=== PATIENT | female | born 1985 | race Caucasian/White ===

== ENCOUNTER → 2023-08-08 | Outpatient (CLI) | payer MEDICARE, OTHER ==
--- NOTE | 2023-08-08 15:14 | P.HPBAR ---
Bariatric H&P - History & Physicial H&P Date: 08/08/23 History & Physicial: Visit/CC: Initial Patient initial contact: Initial weight: 157.85 kg Initial weight in pounds: 348.00 Height: 5 ft 3 in Initial BMI: 61.6 Last weight: Current weight: 157.85 kg Current weight in pounds: 348.00 Current BMI: 61.6 [place] body weight (based on NIH guidelines): 52.163 kg Excess body weight loss: 0.0% The patient is a 37 year-old F who presents for Bariatric Assessment. She is looking into gastric bypass. She has her food diary journal. She was seen in the office. She is taking a multivitamin. Vitamin D. She had chonic diarrhea. She eas saxewnda for 1 year then trulicity is no longer covered. Past Medical History Smoking Status: Never smoker Surgical - Exam Vital Signs Temp Pulse Resp BP 98.4 F 87 16 160/91 08/08/23 14:55 08/08/23 14:55 08/08/23 14:55 08/08/23 14:55 Bariatric Checklist Checklist: Plan: Checklist: EGD: 1. Hiatal hernia: 2. H. Pylori: HgbA1c: Vitamin D: Smoking: Primary care physician referral: Psychiatry clearance: Cardiology clearance: Sleep study: Diet journal: VTE risk score: VTE risk level: Rehab needs at discharge:
[2023-08-08 15:28] VITALS: BP 160/91; PULSE 87; RESP 16; TEMP 98.4; BMI 61.6
== END ==
LOC: BARWHC3 13:25
PROVIDERS: ATTEND Surgery Plastic and Reconstructive Surgery
DX: E66.01 Morbid (severe) obesity due to excess calories (principal); K52.9 Noninfective gastroenteritis and colitis, unspecified; Z68.44 Body mass index [BMI] 60.0-69.9, adult
CPT/HCPCS: 99202

== ENCOUNTER → 2023-08-08 | Outpatient (CLI) | payer OTHER ==
[2023-08-08 17:20] LABS: INR 0.9 (<1.2); Partial Thromboplastin Time 22.2 sec (22.0-30.0); Prothrombin Time 10.1 sec (10.0-12.5)
[2023-08-09 03:12] LABS: HCT 43.5 % (37.2-46.3); HGB 13.4 g/dL (12.0-15.0); MCH 28.6 pg (27.0-32.0); MCHC 30.8 g/dL (32.0-37.0); MCV 92.9 FL (80.0-97.0); NRBC Per 100 WBC 0 X 10*3/uL (0.00-0.01); Platelet Count 432 X 10*3/uL (140-440); RBC 4.68 X 10*6/uL (4.10-5.20); RDW 14.1 % (11.5-14.5); WBC 15.02 X 10*3/uL (4.50-10.00)
[2023-08-09 04:11] LABS: Prealbumin 18.8 mg/dL (18.0-42.0)
[2023-08-09 04:36] LABS: ALT 33 U/L (8-44); AST 43 U/L (13-35); Albumin 4.1 g/dL (3.8-4.9); Albumin/Globulin Ratio 1.37 Ratio (1.60-3.17); Alkaline Phosphatase 105 U/L (41-126); BUN/Creat Ratio 16.43 Ratio (12.00-20.00); Blood Urea Nitrogen 11.5 mg/dL (9.0-27.0); Calcium 10.2 mg/dL (8.7-10.3); Carbon Dioxide 23.3 mmol/L (21.6-31.8); Chloride 102 mmol/L (96-109); Chol/HDL Ratio 4.37 Ratio; Glucose 93 mg/dL (70-110); LDL Cholesterol,Calculated 114.4 mg/dL (0.0-131.0); Potassium 4.6 mmol/L (3.5-5.5); Sodium 140 mmol/L (135-145); Total Bilirubin 0.3 mg/dL (0.3-1.2); Total Protein 7.1 g/dL (6.2-8.2)
[2023-08-09 05:09] LABS: % Iron Saturation 10.24 (12.00-45.00); Iron 51 UG/DL (50-170); Phosphorus 4.2 mg/dL (2.4-5.1); Total Iron Binding Capacity 498 UG/DL (228-460)
[2023-08-09 10:37] LABS: Zinc, Serum 84 ug/dL (60-130)
== END | disposition home or self-care (01) ==
LOC: LABPAT 15:51
PROVIDERS: ATTEND Surgery Plastic and Reconstructive Surgery
DX: E66.01 Morbid (severe) obesity due to excess calories (principal); E89.1 Postprocedural hypoinsulinemia; D50.8 Other iron deficiency anemias; K91.2 Postsurgical malabsorption, not elsewhere classified; E44.0 Moderate protein-calorie malnutrition; E55.9 Vitamin D deficiency, unspecified; K74.1 Hepatic sclerosis; N19 Unspecified kidney failure; T56.894A Toxic effect of other metals, undetermined, initial encounter; K50.90 Crohn's disease, unspecified, without complications; R94.31 Abnormal electrocardiogram [ECG] [EKG]
CPT/HCPCS: 80053; 80061; 82306; 82525; 82607; 82728; 82746; 83036; 83540; 83550; 83735; 83970; 84100; 84134; 84255; 84425; 84443; 84590; 84630; 85027; 85610; 85730; 93005

== ENCOUNTER 2024-03-31 08:27 | Day surgery (SDC) | payer BC ==
--- NOTE | 2024-03-31 09:16 | P.GSHP ---
History of Present Illness H&P Date: 03/31/24 CHIEF COMPLAINT: GERD HISTORY OF PRESENT ILLNESS: The patient is a 69-year-old male who presents reports gastroesophageal reflux disease. Upper endoscopy was offered for further evaluation and management. PAST MEDICAL HISTORY: Please see list. PAST SURGICAL HISTORY: Please see list. MEDICATIONS: Please see list. ALLERGIES: Please see list. SOCIAL HISTORY: No illicit drug use FAMILY HISTORY: No reports of Crohn disease or ulcerative colitis. REVIEW OF ORGAN SYSTEMS: CONSTITUTIONAL: No reports of fevers or chills. GI: Denies any blood in stools or constipation. PHYSICAL EXAM: VITAL SIGNS: Stable GENERAL: Well-developed and pleasant in no acute distress. HEENT: No scleral icterus. Extraocular movements grossly intact. Moist buccal mucosa. NECK: Supple without lymphadenopathy. CHEST: Unlabored respirations. Equal bilateral excursions. CARDIOVASCULAR: Regular rate and rhythm. Distal 2+ pulses. ABDOMEN: Soft, nondistended. MUSCULOSKELETAL: No clubbing, cyanosis, or edema. ASSESSMENT: 1. Gastroesophageal reflux disease PLAN: 1. Recommend proceeding with an upper endoscopy Past Medical History Smoking Status: Never smoker Medications and Allergies Allergies Allergy/AdvReac Type Severity Reaction Status Date / Time amoxicillin Allergy Rash/Hives Verified 03/12/24 12:35
[2024-03-31] MEDS: IV FLUID CONTINUATION 1,000 ML IV ONE (09:39)
[2024-03-31 09:45] VITALS: TEMP 98.4
[2024-03-31] MEDS: LACTATED RINGERS 1,000 ML IV SCH (09:54)
[2024-03-31] MEDS ORDERED: GLYCOPYRROLATE 0.2 MG/ML 2 ML VIAL ONE (10:32)
[2024-03-31] MEDS ORDERED: PROPOFOL 10 MG/ML 20 ML VIAL IV ONE (10:32)
[2024-03-31] MEDS ORDERED: LIDOCAINE 1% INJ 10MG/ML (20 ML MDV) ONE (10:32)
[2024-03-31] MEDS ORDERED: KETAMINE HCL IN 0.9 % NACL 50 MG/5 ML SYRINGE ONE (10:32)
[2024-03-31 11:40] VITALS: BP 129/82; PULSE 104; RESP 17
--- NOTE | 2024-03-31 12:05 | P.PCN ---
Date of Procedure: 03/31/24 Description of Procedure: PREOPERATIVE DIAGNOSIS: Gastroesophageal reflux disease. Morbid obesity. POSTOPERATIVE DIAGNOSIS: Gastroesophageal reflux disease. Morbid obesity. Gastritis. OPERATION: Esophagogastroduodenoscopy with cold forceps biopsies along esophagus, antrum and duodenum SURGEON: Milly Hou MD ANESTHESIA: MAC. INDICATIONS: The patient is a 38-year-old female who presents with reflux disease. Benefits and risks of the procedure were described. Informed consent was obtained. DESCRIPTION: The patient was brought into the endoscopy suite and laid in the left lateral decubitus position. An Olympus gastroscope was passed along the posterior oropharynx down to the distal esophagus where the squamocolumnar junction was encountered at 40 cm from the incisors. The stomach was entered and no bile reflux was found. Additional findings are listed below. Biopsies with cold forceps were obtained of the antrum. The first through third portion of the duodenum was examined. Retroflexion of the scope confirmed Hill grade 2 lower esophageal valve. The squamocolumnar junction demonstrated LA grade B erosive esophagitis. The stomach was desufflated. The patient tolerated the procedure well. FINDINGS: Squamocolumnar junction 40 cm from the incisors. Diaphragmatic hiatus at 40 cm. Hill grade 2 lower esophageal valve. LA grade A erosive esophagitis. Biopsies obtained Biopsies obtained of the duodenum. Chronic gastritis with biopsies obtained. RECOMMENDATIONS: Upper endoscopy as needed. Plan - Discharge Summary Discharge Rx Participant: No New Discharge Prescriptions: Continue busPIRone HCL 5 mg PO DAILY Losartan Potassium 100 mg PO DAILY Metoprolol Tartrate [Lopressor] 1 tab PO DAILY buPROPion XL [Wellbutrin XL] 150 mg PO DAILY Discharge Medication List Losartan Potassium 100 mg PO DAILY 03/31/24 [History] Metoprolol Tartrate [Lopressor] 1 tab PO DAILY 03/31/24 [History] buPROPion XL [Wellbutrin XL] 150 mg PO DAILY 03/31/24 [History] busPIRone HCL 5 mg PO DAILY 03/31/24 [History] Follow up [facility]ment(s[facility]Ref[facility] [place] [facility] [place] [facility]30[facility]24 3:30 pm Patient Instructions/Handouts: Gastritis (DC) Discharge Disposition: HOME SELF-CARE
== END 2024-03-31 12:31 | disposition home or self-care (01) ==
LOC: ORWHC2ENDO 08:27
PROVIDERS: ATTEND Surgery Plastic and Reconstructive Surgery
DX: K29.50 Unspecified chronic gastritis without bleeding (principal); K21.00 Gastro-esophageal reflux disease with esophagitis, without bleeding; I10 Essential (primary) hypertension; G47.33 Obstructive sleep apnea (adult) (pediatric); F32.A Depression, unspecified; F41.9 Anxiety disorder, unspecified; E66.01 Morbid (severe) obesity due to excess calories; Z68.36 Body mass index [BMI] 36.0-36.9, adult; Z88.0 Allergy status to penicillin; Z79.899 Other long term (current) drug therapy
CPT/HCPCS: 81025; 88305; 43239; J2003; J2704; J1596

== ENCOUNTER → 2024-07-16 | Outpatient (CLI) | payer BC ==
[2024-07-16 14:56] LABS: INR 0.9 (<1.2); Partial Thromboplastin Time 24.8 sec (22.0-30.0); Prothrombin Time 10.6 sec (10.0-12.5)
[2024-07-16 18:14] LABS: HGB 12.8 g/dL (12.0-15.0); MCH 28.3 pg (27.0-32.0); MCHC 31.2 g/dL (32.0-37.0); MCV 90.5 FL (80.0-97.0); Mean Platelet Volume 10.2 FL (9.5-12.2); NRBC Per 100 WBC 0 X 10*3/uL (0.00-0.01); Platelet Count 484 X 10*3/uL (140-440); RBC 4.53 X 10*6/uL (4.10-5.20); RDW 13.4 % (11.5-14.5); WBC 12.96 X 10*3/uL (4.50-10.00)
[2024-07-16 18:32] LABS: Prealbumin 20.1 mg/dL (18.0-42.0)
[2024-07-16 18:48] LABS: % Iron Saturation 13.13 (12.00-45.00); ALT 92 U/L (8-44); AST 79 U/L (13-35); Albumin 4.3 g/dL (3.8-4.9); Albumin/Globulin Ratio 1.48 Ratio (1.60-3.17); Alkaline Phosphatase 130 U/L (41-126); Blood Urea Nitrogen 15.3 mg/dL (9.0-27.0); Carbon Dioxide 24.7 mmol/L (21.6-31.8); Chloride 102 mmol/L (96-109); Chol/HDL Ratio 6.97 Ratio; Globulin 2.9 g/dL (1.6-3.3); Glucose 165 mg/dL (70-110); Iron 57 UG/DL (50-170); LDL Cholesterol,Calculated 140.9 mg/dL (0.0-131.0); Magnesium 1.8 mg/dL (1.5-2.4); Phosphorus 3.7 mg/dL (2.4-5.1); Potassium 3.9 mmol/L (3.5-5.5); Sodium 141 mmol/L (135-145); Total Bilirubin 0.5 mg/dL (0.3-1.2); Total Iron Binding Capacity 434 UG/DL (228-460); Total Protein 7.2 g/dL (6.2-8.2)
[2024-07-17 14:11] LABS: Zinc, Serum 78 ug/dL (60-130)
[2024-07-18 08:22] LABS: Vitamin A 48 ug/dL (38-106)
[2024-07-18 10:26] LABS: Vit B1(Thiamine) 97 ug/L (38-122)
== END | disposition home or self-care (01) ==
LOC: LABWHC1 13:50
PROVIDERS: ATTEND Surgery Plastic and Reconstructive Surgery
DX: E66.01 Morbid (severe) obesity due to excess calories (principal); E89.1 Postprocedural hypoinsulinemia; D50.8 Other iron deficiency anemias; K91.2 Postsurgical malabsorption, not elsewhere classified; E44.0 Moderate protein-calorie malnutrition; E45 Retarded development following protein-calorie malnutrition; E55.9 Vitamin D deficiency, unspecified; N19 Unspecified kidney failure; T56.894A Toxic effect of other metals, undetermined, initial encounter; K74.1 Hepatic sclerosis; K50.90 Crohn's disease, unspecified, without complications
CPT/HCPCS: 36415; 80053; 80061; 82306; 82525; 82607; 82728; 82746; 83036; 83540; 83550; 83735; 83970; 84100; 84134; 84255; 84425; 84443; 84590; 84630; 85027; 85610; 85730; 93005

== ENCOUNTER → 2024-07-31 | Outpatient (CLI) | payer BC ==
--- NOTE | 2024-07-31 08:16 | US ---
EXAMINATION TYPE: US gallbladder DATE OF EXAM: 07/31/2024 COMPARISON: NONE CLINICAL INDICATION: Female, 38 years old with history of R94.5 ABNORMAL RESULTS OF LIVER FUNCTION ST UDIES; Abnormal labs TECHNIQUE: Grayscale and color Doppler imaging of the right upper quadrant was performed. FINDINGS: EXAM MEASUREMENTS: Liver Length: 21.4 cm Gallbladder Wall: 0.2 cm CBD: 0.4 cm Right Kidney: 11.0 x 5.8 x 5.2 cm GIS MANAGER NOTES:Limited due to overlying bowel gas Pancreas: Head and tail obscured by overlying bowel gas Liver: Increased attenuation, decreased visualization of vessels suggestive of fatty infiltrate Gallbladder: No stones or wall thickening seen at time of scan Evidence for sonographic Sanchez's sign: neg CBD: wnl Right Kidney: No hydronephrosis or masses seen Visualized portions of the pancreas unremarkable. The liver demonstrates diffuse increased echogenici ty. No focal lesion identified. No gallbladder wall thickening, surrounding fluid or stones identifie d. Negative sonographic Sanchez sign. Common bile duct is within normal limits. Right kidney demonstra damon no hydronephrosis, solid mass, or shadowing calculus. IMPRESSION: 1. No ultrasound evidence for acute process. 2. Hepatomegaly with diffuse fatty infiltration. [facility], , 07/31/2024 8:13 AM
== END | disposition home or self-care (01) ==
LOC: RADUSWWP 07:18
PROVIDERS: ATTEND Surgery Plastic and Reconstructive Surgery
DX: K76.0 Fatty (change of) liver, not elsewhere classified (principal); R16.0 Hepatomegaly, not elsewhere classified; R94.5 Abnormal results of liver function studies
CPT/HCPCS: 76705

== ENCOUNTER 2024-08-04 09:26 | Day surgery (SDC) | payer BC ==
--- NOTE | 2024-08-04 07:51 | P.GSHP ---
History of Present Illness H&P Date: 08/04/24 CHIEF COMPLAINT: Morbid obesity HISTORY OF PRESENT ILLNESS: Marilu Christianson is a 38-year-old female who comes with lifelong morbid obesity. She has tried medical weight loss including medications. She comes in with moderate weight gain. She is looking into the gastric bypass. As result of her morbid obesity, she has developed hypertensive heart disease, diabetes type 2. She has completed bariatric assessment, medical risk assessment and cardiac risk assessment. She also comes in with right upper quadrant epigastric abdominal pain with family history of gallbladder disease. She presents for sleeve gastrectomy including cholecystectomy. At height of 5 feet 3 inches, her ideal body weight is 140 pounds. She comes in 335 pounds. Her body mass index is 59.3. She is 195 pounds overweight. PAST MEDICAL HISTORY: 1. Morbid obesity due to excess calories 2. Body mass index of 59.3 3. Hypertensive heart disease 4. Depressive disorder 5. Diabetes type 2 6. Generalized anxiety disorder PAST SURGICAL HISTORY: 1. No abdominal surgeries HOME MEDICATIONS: Reviewed ALLERGIES: Reviewed SOCIAL HISTORY: Past tobacco use. FAMILY HISTORY: No family history of ulcerative colitis disease or Crohn's disease. Family history of morbid obesity. No lupus in the family. No reports of stomach or esophageal cancer. REVIEW OF ORGAN SYSTEMS: CONSTITUTIONAL: At height of 5 feet 3 inches, her ideal body weight is 140 pounds. She comes in 335 pounds. Her body mass index is 59.3. She is 195 pounds overweight. HEENT: Denies any active troubles with vision or hearing. ENDOCRINE: Has diabetes. Has hypothyroidism. CARDIOVASCULAR: Denies reports of palpitations or heart attacks or chest pain. Has hypertensive heart disease. RESPIRATORY: Denies daytime somnolence. Has asthma. Denies chronic obstructive pulmonary disease. GASTROINTESTINAL: Denies any bright red blood per rectum. No diarrhea. No constipation. Has gastroesophageal reflux disease. GENITOURINARY: Denies bladder urgency. No recent blood in urine MUSCULOSKELETAL: Has lower back pain and joint pain. Has osteoarthritis of the knees. NEURO: No headaches. No seizure disorders. PSYCH: Has depression. No suicidal ideation. RHEUMATOLOGIC: No lupus. No rheumatoid arthritis. HEMATOLOGIC: Denies any abnormal bleeding or bruising. SKIN: No rash. No skin cancer. PHYSICAL EXAM: VITAL SIGNS: Height 5 foot 3 inches, weight 335 pounds. BMI 59.3 GENERAL: Well-developed in no acute distress. HEENT: No scleral icterus. Extraocular movements grossly intact. Hears conversational speech. No nasal drainage. NECK: Supple without lymphadenopathy. CHEST: Nonlabored respirations with equal bilateral excursions. CARDIOVASCULAR: Regular rate and regular rhythm. Distal 2+ pulses. ABDOMEN: Obese, soft, nontender, nondistended. MUSCULOSKELETAL: No clubbing, cyanosis. NEURO: No focal or lateralizing signs. Cranial nerves 2 through 12 grossly within normal limits. PSYCH: Appropriate affect. Alert and oriented to person, place and time. SKIN: Good skin turgor. Well perfused. STUDIES: Ultrasound of gallbladder independent reviewed demonstrate moderate fatty liver disease. This is my independent interpretation LABS: Recent labs reviewed demonstrate moderately elevated LFTs but trending upward. WBC is elevated. ASSESSMENT: 1. Morbid obesity due to excess calories 2. Body mass index of 59.3 to 56.7 3. Hypertensive heart disease 4. Depressive disorder 5. Diabetes type 2 6. Generalized anxiety disorder 7. Chronic gastritis 8. Hypothyroidism 9. Leukocytosis 10. Copper excess 11. Cholecystitis 12. Elevated liver enzymes 13. Fatty liver disease 14. Leukocytosis 15. Family history gallbladder disease. PLAN: 1. Bariatric options between a sleeve, band and a Joanne-en-Y gastric bypass were reviewed in detail. The patient elected for a sleeve gastrectomy. Robotic assisted approach described. Anticipated weight loss 2. The [place] [facility] Data was also reviewed with benefits and risks as described. 3. An 8 page second-generation bariatric consent form was reviewed in detail including potential of bleeding, infection, leaks, adequate weight loss, nutritional deficiencies which the patient demonstrated understanding of the risks. 4. A 2 week high-protein low caloric 800 kcal diet described to address hepatomegaly. 5. Preoperative labs including complete metabolic panel and CBC with type and screen recommended. 6. DVT prophylaxis per [place] bariatric surgery collaborative. 7. Antibiotic prophylaxis. 8. Inpatient hospitalization anticipated for more than 2 nights. 9. All questions and concerns were addressed with the patient. 10. The patient is at elevated risk for perioperative hypertensive heart disease. 11. Overall, patient has expressed understanding of bariatric care including postoperative diet and commitment of lifestyle. Patient should benefit from surgical intervention for correction of morbid obesity. 12. She is elevated risk due to pre-existing comorbid conditions 13. Robotic cholecystectomy also prescribed due to clinical cholecystitis 14. Anticipated weight loss of 16 pounds otherwise 312 pounds and the procedure was described in detail. Weight loss range under 319 pounds expected. Past Medical History Past Medical History: Diabetes Mellitus, Hypertension, Thyroid Disorder Additional Past Medical History / Comment(s): "PROBABLY HAS SLEEP APNEA NO TESTING DONE YET" History of Any Multi-Drug Resistant Organisms: None Reported Additional Past Surgical History / Comment(s): WISDOM TEETH REMOVED, EGD, Past Anesthesia/Blood Transfusion Reactions: No Reported Reaction Smoking Status: Never smoker - Past Family History Mother Family Medical History: Cancer, Hypertension Additional Family Medical History / Comment(s): Uterine cancer, depression Father Family Medical History: Cancer Additional Family Medical History / Comment(s): Prostate and Bladder Cancer. Medications and Allergies Home Medications Medication Instructions Recorded Confirmed Type Losartan Potassium 100 mg PO DAILY 03/31/24 07/29/24 History Metoprolol Tartrate [Lopressor] 50 tab PO BID 03/31/24 07/29/24 History buPROPion XL [Wellbutrin XL] 150 mg PO DAILY 03/31/24 07/29/24 History busPIRone HCL 5 mg PO BID 03/31/24 07/29/24 History metFORMIN HCL [Glucophage] 500 mg PO BID #60 tab 05/21/24 07/29/24 Rx Cholecalciferol (Vitamin D3) 125 mcg PO DAILY 07/16/24 07/29/24 History [Vitamin D3 (125 MCG = 5,000 IU)] Magnesium 200 mg PO HS 07/16/24 07/29/24 History norethindrone ac-eth estradioL 1 tab PO HS 07/16/24 07/29/24 History [Microgestin 21 1.5-30 Tab] Levothyroxine Sodium [Synthroid] 50 mcg PO HS 07/29/24 07/29/24 History Spironolactone-Hctz 25-25Mg 1 each PO DAILY 07/29/24 07/29/24 History [Aldactazide 25-25Mg] Allergies Allergy/AdvReac Type Severity Reaction Status Date / Time amoxicillin Allergy Rash/Hives Verified 07/29/24 17:13
--- NOTE | 2024-08-04 07:52 | P.HPADDEND ---
H&P Addendum H&P Addendum Date: 08/04/24 Indocyanine green ordered. Repeat CBC and CMP advised due to abnormal labs.
[~2024-08-04 09:26] MED LIST: LIDOCAINE 1% (10MG/ML) FOR IV START INTRADERMA PRN; ONDANSETRON 4 MG/2 ML VIAL IVP PRN
[2024-08-04] MEDS: IV FLUID CONTINUATION 1,000 ML IV ONE (10:09)
[2024-08-04 10:16] LABS: Glucose,Whole Blood 107 mg/dL (70-110)
[2024-08-04] MEDS: LACTATED RINGERS 1,000 ML IV SCH (10:16)
[2024-08-04] MEDS: PANTOPRAZOLE 40 MG/10 ML VIAL IVP STA (10:16)
[2024-08-04] MEDS: ONDANSETRON 4 MG/2 ML VIAL IVP ONE (10:17)
[2024-08-04] MEDS: DEXAMETHASONE SOD PHOSPHATE 4 MG/ML 1 ML VIAL IV ONE (10:17)
[2024-08-04] MEDS: ACETAMINOPHEN TAB 500 MG TAB PO PRN (10:18)
[2024-08-04] MEDS: ALVIMOPAN 12 MG CAPSULE PO PRN (10:18)
[2024-08-04] MEDS: CHLORHEXIDINE GLUCONATE 15 ML CUP MUCOUS MEM STA (10:18)
[2024-08-04] MEDS: MIDAZOLAM 2 MG/2 ML VIAL IV PRN (10:22)
[2024-08-04] MEDS: fentaNYL (PF) 50 MCG/ML 2 ML AMP IVP PRN (10:29)
[2024-08-04] MEDS: ENOXAPARIN 40 MG/0.4 ML SYRINGE SQ PRN (10:46)
--- NOTE | 2024-08-04 10:46 | P.ANPRN ---
Procedure Note - Anesthesia - Nerve Block Performed Bilateral Erector Spinae Single Time Out Performed: Yes Date of Procedure: 08/04/24 Procedure Start Time: Procedure Stop Time: Location of Patient: PreOp Indication: Acute Post-Operative Pain, Analgesia, Requested by Surgeon Sedation Type: Sedate with meaningful contact maintained Preparation: Sterile Prep Position: Prone Catheter: None Needle Types: Pajunk Needle Gauge: 21 Ultrasound used to visualize needle placement: Yes Ultrasound used to observe medication spread: Yes Injectate: 0.5% Ropivacaine (see comment for volume) (Ropiv 20ml+[id number], Needle level T8---Each side.) Blood Aspirated: No Pain Paresthesia on Injection Noted: No Resistance on Injection: Normal Image Stored and Saved: Yes Events: Uneventful and Well Tolerated
[2024-08-04] MEDS ORDERED: KETOROLAC 15 MG/ML 1 ML VIAL ONE (12:00)
[2024-08-04] MEDS ORDERED: ROPIVACAINE 5 MG/ML 30 ML VIAL ONE (12:00)
[2024-08-04] MEDS ORDERED: PROPOFOL 10 MG/ML 20 ML VIAL IV ONE (12:00)
[2024-08-04] MEDS ORDERED: fentaNYL (PF) 50 MCG/ML 2 ML AMP ONE (12:00)
[2024-08-04] MEDS ORDERED: DEXAMETHASONE SOD PHOSPHATE 4 MG/ML 1 ML VIAL ONE (12:00)
[2024-08-04] MEDS ORDERED: LIDOCAINE 1% INJ 10MG/ML (20 ML MDV) ONE (12:00)
[2024-08-04] MEDS ORDERED: ePHEDrine 50 MG/ML 1 ML VIAL ONE (12:00)
[2024-08-04] MEDS ORDERED: ROCURONIUM 10 MG/ML (5 ML VIAL) IV ONE (12:00)
[2024-08-04] MEDS ORDERED: NEOSTIGMINE 1 MG/ML 10 ML VIAL ONE (12:00)
[2024-08-04] MEDS ORDERED: GLYCOPYRROLATE 0.2 MG/ML 2 ML VIAL ONE (12:00)
[2024-08-04] MEDS ORDERED: PHENYLEPHRINE 10 MG/ML VIAL ONE (12:00)
[2024-08-04] MEDS ORDERED: SUCCINYLCHOLINE CHLORIDE 200 MG/10 ML VIAL IV ONE (12:00)
[2024-08-04] MEDS: ceFAZolin 3 GM in SODIUM CHLORIDE 0.9% 100 ML IVPB PRN (12:03)
[2024-08-04] MEDS: LIDOCAINE 1%-EPI 1:100,000 20 ML VIAL SQ ONE (12:36)
[2024-08-04] MEDS: LACTATED RINGERS 1,000 ML IV ONE (13:53)
[2024-08-04] MEDS ORDERED: NALOXONE 0.4 MG/ML 1 ML VIAL IV PRN (14:19)
[2024-08-04] MEDS ORDERED: HYDROmorphone 2 MG/ML 1 ML SYRINGE IVP PRN (14:19)
[2024-08-04] MEDS: DEXAMETHASONE SOD PHOSPHATE 10 MG/ML 1 ML VIAL IVP STA (14:58)
[2024-08-04] MEDS: SODIUM CHLORIDE 0.9% 1,000 ML IV ONE ×3 (14:59→16:07)
[2024-08-04] MEDS: SODIUM CHLORIDE 0.9% 1,000 ML IV SCH (14:59)
[2024-08-04] MEDS: HYDROmorphone 0.5 MG/0.5 ML SYRINGE IVP PRN (15:33)
[2024-08-04] MEDS: ALBUTEROL NEBULIZED 2.5 MG/3 ML INHALATION SCH (15:58)
[2024-08-04 17:01] LABS: Glucose,Whole Blood 158 mg/dL (70-110)
[2024-08-04] MEDS: INDOCYANINE GREEN 25 MG VIAL IV STA (17:01)
[2024-08-04] MEDS: 0.9% NACL WITH KCL 20 MEQ/L 1,000 ML IV SCH (17:28)
[2024-08-04] MEDS: ONDANSETRON 4 MG/2 ML VIAL IVP SCH (17:29)
[2024-08-04] MEDS: diphenhydrAMINE 50 MG/ML 1 ML VIAL IVP SCH (17:29)
[2024-08-04] MEDS: fentaNYL PCA 500 MCG/50 ML BAG IV SCH (17:31)
[2024-08-04] MEDS: SCOPOLAMINE 1 MG/72 HR PATCH TRANSDERM STA (17:44)
[2024-08-04] MEDS ORDERED: ACETAMINOPHEN IV (For NPO) 1,000 MG in EMPTY BAG 1 BAG IVPB SCH (18:00)
[2024-08-04] MEDS: ACETAMINOPHEN IV (For NPO) 1,000 MG in EMPTY BAG 1 BAG IVPB SCH (18:15)
[2024-08-04] MEDS: HYOSCYAMINE ORAL DROPS 1.875 MG/15 ML BOTTLE PO SCH (18:16)
[2024-08-04] MEDS: SIMETHICONE 40 MG/0.6 ML DROPS 2,000 MG/30 ML BOTTLE PO SCH (18:16)
[2024-08-04 20:22] LABS: Glucose,Whole Blood 158 mg/dL (70-110)
[2024-08-04] MEDS: LEVOTHYROXINE 50 MCG TAB PO SCH (20:37)
[2024-08-04] MEDS: DEXAMETHASONE SOD PHOSPHATE 4 MG/ML 1 ML VIAL IVP SCH (20:37)
[2024-08-04] MEDS: METOPROLOL TARTRATE 50 MG TAB PO SCH (20:37)
[2024-08-04] MEDS: PANTOPRAZOLE 40 MG/10 ML VIAL IV SCH (20:37)
[2024-08-04] MEDS: ceFAZolin 3 GM in SODIUM CHLORIDE 0.9% 100 ML IVPB SCH (20:38)
[2024-08-05 03:30] VITALS: RESP 16
[2024-08-05 06:13] LABS: Glucose,Whole Blood 154 mg/dL (70-110)
[2024-08-05 08:16] LABS: Basophils # (A) 0.02 X 10*3/uL (0.00-0.10); Basophils % (A) 0.2 %; Eosinophils # (A) 0 X 10*3/uL (0.04-0.35); Eosinophils % (A) 0 %; HCT 38.5 % (37.2-46.3); HGB 11.8 g/dL (12.0-15.0); Lymphocytes # (A) 0.96 X 10*3/uL (0.90-5.00); Lymphocytes % (A) 10.8 %; MCH 29.1 pg (27.0-32.0); MCHC 30.6 g/dL (32.0-37.0); MCV 95.1 FL (80.0-97.0); Mean Platelet Volume 11.3 FL (9.5-12.2); Monocytes # (A) 0.27 X 10*3/uL (0.20-1.00); NRBC Per 100 WBC 0 X 10*3/uL (0.00-0.01); Neutrophils # (A) 7.63 X 10*3/uL (1.80-7.70); Neutrophils % (A) 85.7 %; Platelet Count 297 X 10*3/uL (140-440); RBC 4.05 X 10*6/uL (4.10-5.20); RDW 13.8 % (11.5-14.5); WBC 8.91 X 10*3/uL (4.50-10.00)
--- NOTE | 2024-08-05 08:25 | P.OP ---
Date of Procedure: 08/04/24 Description of Procedure: SURGEON: ERENDIRA ESTRELLA MD PREOPERATIVE DIAGNOSES: 1. Morbid obesity due to excess calories 2. Body mass index of 59.3 to 56.7 3. Hypertensive heart disease 4. Depressive disorder 5. Diabetes type 2 6. Generalized anxiety disorder 7. Chronic gastritis 8. Hypothyroidism 9. Leukocytosis 10. Copper excess 11. Cholecystitis 12. Elevated liver enzymes 13. Fatty liver disease 14. Leukocytosis 15. Family history gallbladder disease. POSTOPERATIVE DIAGNOSES: 1. Morbid obesity due to excess calories 2. Body mass index of 59.3 to 56.7 3. Hypertensive heart disease 4. Depressive disorder 5. Diabetes type 2 6. Generalized anxiety disorder 7. Chronic gastritis 8. Hypothyroidism 9. Leukocytosis 10. Copper excess 11. Cholecystitis 12. Elevated liver enzymes 13. Fatty liver disease 14. Leukocytosis 15. Family history gallbladder disease. 16. Liver cirrhosis with hepatomegaly due to severe fatty liver disease OPERATION: 1. Robotic assisted daVinci Xi laparoscopic sleeve gastrectomy with 40-Uruguayan bougie, multiport. 2. Robotic assisted daVinci Xi laparoscopic cholecystectomy with FIREFLY, multiport. 3. Intraoperative esophagogastroduodenoscopy. ANESTHESIA: Gen. local anesthetic ESTIMATED BLOOD LOSS: 5 mL SPECIMENS REMOVED: Sleeve gastrectomy and gallbladder COMPLICATIONS: None. FINDINGS: 1. Negative intraoperative esophagogastrojejunoscopy leak test. 2. No large hiatus hernia. 3. Total of 6 staplers used including 1 - 60 mm green robot, 5 - 60 mm blue loads used to create the gastric sleeve. 4. Sleeve gastrectomy 27 x 5 cm 5. Gallbladder removed without contamination. 6. Severe hepatomegaly with fatty liver disease and micronodular liver cirrhosis INDICATIONS: Marilu Christiasnon is a 38-year-old female who comes with lifelong morbid obesity. As result of her morbid obesity, she has developed hypertensive heart disease, diabetes type 2. She has completed bariatric assessment, medical risk assessment and cardiac risk assessment. She also comes in with right upper quadrant epigastric abdominal pain with family history of gallbladder disease. She presents for sleeve gastrectomy including cholecystectomy. At height of 5 feet 3 inches, her ideal body weight is 140 pounds. She comes in 335 pounds. Her body mass index is 59.3. She is 195 pounds overweight. She achieved her anticipated weight loss over 16 pounds. All surgical options for morbid obesity had been described using the [facility] surgery collaborative comorbidity resolution including complication risk score. A second-generation bariatric consent form was described in detail including the possibility of protein malnutrition, leaks, gastric stricture, venous thrombosis, gastroesophageal reflux disease, need for further surgery for which she demonstrated understanding. Additionally he had clinical cholecystitis for which cholecystectomy was described. Benefits and risks of the procedure were described at length. Informed consent was obtained. DESCRIPTION: The patient was brought into the operating room theater. Preoperatively she had received Lovenox subcutaneously for DVT prophylaxis. Additionally Peridex oral solution as an oral decontaminant. After general induction, the abdomen was prepped and draped in standard sterile fashion. An Ioban draping was placed along the abdomen. No alvarado catheter was placed A robotic da Neal Xi system was prepped and primed. At 15 cm from the xiphoid, proposed port sites were marked with indelible marker along the anterior axillary line bilaterally, mid axillary line bilaterally with each ports were marked 10 to 15 cm from each other. The shipping assistant port was m arked along the left lateral abdominal wall. The robotic stapler port was marked for the right midclavicular line. A 5 mm 0 degrees laparoscopic trocar entry was performed along the left upper quadrant. The abdomen was insufflated to 15 mmHg pressure was tolerated well. Diagnostic laparoscopy demonstrated no injury to bowel, viscera, or mesentery. No large hiatal hernia was identified. Severe fatty liver disease with hepatomegaly and macronodular cirrhosis was identified. No injury had occurred to the small bowel or viscera. Along the hiatus no prominent hiatal hernia. A 12 mm port was placed along the left upper abdominal wall after exchanging the 5 mm port. Another port was placed along the left lateral abdominal wall 8 mm. A separate 8 mm port was placed along the epigastrium and a 12-mm port placed along the right upper quadrant. Please note that the ports were placed at least 20 cm away from the target anatomy. Another port was placed along the right lateral abdominal wall, 8 mm trocar. Care was taken to check each robotic arms were safely away from collision with the bed or the patient. I had sat at the console. Next, 12-mm robot stapler port was placed along the right upper quadrant. The camera 8-mm port was maintained along the epigastrium. The patient was repositioned in reverse Trendelenburg position at 21-degrees after lowering the bed. The robot was docked along the right side of the patient. Using a grasper for arm 2, a hook cautery for arm 3, including grasper for arm 1, the robotic system was docked and primed as described. Instruments including Bovie cautery, vessel sealer, and staplers, and clips were interchanged by the shipping assistant for stapler loads. The camera was placed at 30-degrees down. Attention was brought to the sleeve gastrectomy portion of the case. The pylorus was identified and 6 cm proximally along the greater curvature of the stomach, the short gastrics were mobilized upwards to the angle of His using a vessel sealer. Redundant and adherent gastric cardia was addressed similarly and carefully with vessel sealer. Hemostasis was excellent during this portion of the procedure. The nursing bilingual spanish inbound sales positioned a 40-Uruguayan blunt bougie into the stomach. Robotic stapler green and blue loads 60 mm x 6 were used to create the sleeve. Initial firing was across the antrum of the stomach towards the angle of His. The staple line was completely hemostatic and linear without corkscrewing. Hemostasis was excellent. The space from the angularis incisura of the sleeve was approximately 4 cm. Attention was brought to gallbladder. The gallbladder fundus was retracted over the dome of the liver. Initial attention was brought to the infundibulum which was gently retracted in the inferior lateral approach. Using a grasper, the cystic duct including the cystic artery was carefully skeletonized. FIREFLY was used to identify the cystic artery and cystic structures. Large PLASTIC clips were used throughout the entire case. Using a clip underwriting specialist 2 clips were placed proximally, and 1 clip was placed distally along the cystic duct and then cauterized. Again care was taken to avoid any injury to the biliary tree as the common bile duct was clearly visualized during this portion of dissection. Next, the cystic artery was cauterized. Total of 3 clips were left at the hepatic fossa Electro-Bovie cautery was used to remove the gallbladder from the hepatic fossa. Hemostasis was checked and found to be adequate. I then went to the head of the bed to perform the intraoperative esophagogastroduodenoscopy leak test. The upper pole of the stomach was bathed using normal saline solution. The scope was withdrawn with careful inspection along the staple line for which no leaks were found along the entire length. The pylorus was widely patent. Additionally, the sleeve had blood clots which were suctioned and findings without any encroachment along the angularis incisura. Its topology was a soft "J". No stricture was encountered upon placement of the scope. The GI tract was desufflated. The patient tolerated this portion of the procedure well. The scope was completely withdrawn. The robot was undocked. I then rescrubbed into case, whereby the irrigation fluid was aspirated from the abdominal cavity. Tisseal fibrin sealant was placed along the entire staple length. Once dried the Armond liver retractor was removed. Attention was now brought to removal of the specimens including the gallbladder. Gallbladder was removed using Endo Catch bag. The distal end of the sleeve gastrectomy specimen was brought out through the 12 mm port at the left upper quadrant. The specimen was gently removed en total, corresponding to 27 cm x 5 cm sleeve gastrectomy specimen. No contamination had occurred during this process. All instruments and pneumoperitoneum including irrigation fluid was removed from the abdominal cavity. The 12 mm port site was irrigated with warm normal saline solution and diluted hydron peroxide. The final incisions were closed using subcuticular interrupted suture of 4-0 Monocryl. Dermabond was applied to the skin once the skin had been cleansed. OptiFoam d ressing was placed along the stomach extraction site. At the end of the procedure, needle, sponge, and instrument count was verified correct by the manager surgical. The patient was taken to the postanesthesia care unit in stable condition. The patien had tolerated the procedure well. Intraoperative films and findings were reviewed with the patient's family.
[2024-08-05 08:27] LABS: Blood Urea Nitrogen 24.8 mg/dL (9.0-27.0); Calcium 8.6 mg/dL (8.7-10.3); Carbon Dioxide 13.9 mmol/L (21.6-31.8); Chloride 105 mmol/L (96-109); Magnesium 1.8 mg/dL (1.5-2.4); Phosphorus 4.4 mg/dL (2.4-5.1); Potassium 4.8 mmol/L (3.5-5.5); Sodium 141 mmol/L (135-145)
[2024-08-05] MEDS: ENOXAPARIN 40 MG/0.4 ML SYRINGE SQ SCH (10:08)
[2024-08-05] MEDS: LOSARTAN 50 MG TAB PO SCH (10:09)
[2024-08-05 10:15] VITALS: BMI 55.7
[2024-08-05] MEDS: SODIUM CHLORIDE 0.9% 1,000 ML IV SCH (11:20)
[2024-08-05 11:35] LABS: Glucose,Whole Blood 136 mg/dL (70-110)
[2024-08-05] MEDS: TAMSULOSIN 0.4 MG CAP.ER.24H PO STA (13:02)
[2024-08-05] MEDS: 0.9% NACL WITH KCL 20 MEQ/L 1,000 ML IV SCH (14:19)
[2024-08-05 14:50] LABS: African American GFR (CKD) 35 (>60 ml/min/1.73 sqM); Anion Gap 12 mmol/L; Blood Urea Nitrogen 23 mg/dL (7-17); Calcium 8.5 mg/dL (8.4-10.2); Carbon Dioxide 21 mmol/L (22-30); Chloride 110 mmol/L (98-107); Glucose 137 mg/dL (74-99); Non-African American GFR(CKD) 30 (>60 ml/min/1.73 sqM); Potassium 4.4 mmol/L (3.5-5.1); Sodium 143 mmol/L (137-145)
[2024-08-05 14:57] VITALS: BP 137/82; PULSE 77; TEMP 97.5
--- NOTE | 2024-08-05 15:05 | P.DS ---
Providers Expected date of discharge: 08/05/24 Attending physician: Milly Hou Primary care physician: Pal Bradshaw MD Hospital Course: Discharge diagnosis 1. Morbid obesity due to excess calories 2. Body mass index of 59.3 to 56.7 3. Hypertensive heart disease 4. Depressive disorder 5. Diabetes type 2 6. Generalized anxiety disorder 7. Chronic gastritis 8. Hypothyroidism 9. Leukocytosis 10. Copper excess 11. Cholecystitis 12. Elevated liver enzymes 13. Fatty liver disease 14. Leukocytosis 15. Family history gallbladder disease. 16. Liver cirrhosis with hepatomegaly due to severe fatty liver disease 17. Acute kidney injury likely due to diuretics, losartan and protein 18. Urinary retention Hospital course Marilu Christianson is a 38-year-old female who comes with lifelong morbid obesity. She is status post robotic assisted sleeve gastrectomy and cholecystectomy. Patient reports her pain is controlled. She is tolerating diet. She denies any difficulty urinating. She has been up and ambulating. She is afebrile. Patient did have evidence of acute kidney injury. She has received fluid boluses. Her diuretics and losartan were discontinued. She is able to urinate with evidence of urinary retention. Patient was started on Flomax. Her medications have been adjusted due to the acute kidney injury. And she has a close follow-up visit scheduled for tomorrow at the bariatric center. Patient is stable for discharge. Physician Transportation Maintenance Specialist note has been reviewed by physician. Signing provider agrees with the documented findings, assessment, and plan of care. Patient Condition at Discharge: Stable Plan - Discharge Summary Discharge Rx Participant: Yes New Discharge Prescriptions: New bisacodyL [Dulcolax] 5 mg PO DAILY PRN #10 tab PRN Reason: Constipation Omeprazole [PriLOSEC] 40 mg PO DAILY #90 cap Ondansetron Odt [Zofran Odt] 4 mg PO Q8HR PRN #9 tab PRN Reason: Nausea Tamsulosin HCl [Flomax] 0.4 mg PO DAILY 3 Days #3 cap Simethicone 40 mg/0.6 ml Drops [Mylicon Drops] 40 mg PO PCHS PRN #30 ml PRN Reason: Gas Continue Metoprolol Tartrate [Lopressor] 50 tab PO BID Levothyroxine Sodium [Synthroid] 50 mcg PO HS norethindrone ac-eth estradioL [Microgestin 21 1.5-30 Tab] 1 tab PO HS Discontinued busPIRone HCL 5 mg PO BID Losartan Potassium 100 mg PO DAILY Cholecalciferol (Vitamin D3) [Vitamin D3 (125 MCG = 5,000 IU)] 125 mcg PO DAILY Magnesium 200 mg PO HS buPROPion XL [Wellbutrin XL] 150 mg PO DAILY Spironolactone-Hctz 25-25Mg [Aldactazide 25-25Mg] 1 each PO DAILY Discharge Medication List Metoprolol Tartrate [Lopressor] 50 tab PO BID 03/31/24 [History] norethindrone ac-eth estradioL [Microgestin 21 1.5-30 Tab] 1 tab PO HS 07/16/24 [History] Levothyroxine Sodium [Synthroid] 50 mcg PO HS 07/29/24 [History] Omeprazole [PriLOSEC] 40 mg PO DAILY #90 cap 08/05/24 [Rx] Ondansetron Odt [Zofran Odt] 4 mg PO Q8HR PRN #9 tab 08/05/24 [Rx] Simethicone 40 mg/0.6 ml Drops [Mylicon Drops] 40 mg PO PCHS PRN #30 ml 08/05/24 [Rx] Tamsulosin HCl [Flomax] 0.4 mg PO DAILY 3 Days #3 cap 08/05/24 [Rx] bisacodyL [Dulcolax] 5 mg PO DAILY PRN #10 tab 08/05/24 [Rx] Follow up Appointment(s)/Referral(s): Bariatric [place], [place] [NON-STAFF] - 08/06/24 Activity/Diet/Wound Care/Special Instructions: Liquid diet only for 2 weeks No lifting over 4 pounds in 4 weeks, May Shower. No soaking in bath tubs for 2 weeks Please notify your surgeon if you develop nausea and vomiting including new onset of abdominal pain. Continue to use incentive spirometry to prevent pneumonias. Please continue to ambulate at home to prevent blood clots in legs. Follow-up at the bariatric center. May shower. Dressings to be discontinued by surgeon in the office. Drink 64 oz of fluid daily. Start protein shakes on . Notify bariatric center for temp over 101.0, increased pain, drainage from incisions. No straws or carbonated beverages. Liquid diet only. Sugar content should be less than 6 g to avoid dumping syndrome. Take MOM for constipation. CRUSH, OPEN, OR CUT TABLETS LARGER THAN A SIZE OF A TIC TAC Do not take vitamins or Wellbutrin until seen by surgeon due to increased bleeding risk with these medications. Do not take the losartan, Aldactazide or metformen due to elevated creatinine and dehydration Don't start Protein shakes until seen by surgeon Discharge Disposition: HOME SELF-CARE
== END 2024-08-05 17:04 | disposition home or self-care (01) ==
LOC: OR 09:26 → EDSTATUS 12:00 → 4SSUR 14:04 → OR 08-05 17:04
PROVIDERS: ATTEND Surgery Plastic and Reconstructive Surgery
DX: K81.1 Chronic cholecystitis (principal); E66.01 Morbid (severe) obesity due to excess calories; E03.9 Hypothyroidism, unspecified; E11.9 Type 2 diabetes mellitus without complications; F32.A Depression, unspecified; F41.1 Generalized anxiety disorder; G89.18 Other acute postprocedural pain; I11.9 Hypertensive heart disease without heart failure; K29.50 Unspecified chronic gastritis without bleeding; K74.60 Unspecified cirrhosis of liver; K76.0 Fatty (change of) liver, not elsewhere classified; N17.9 Acute kidney failure, unspecified; Z68.43 Body mass index [BMI] 50.0-59.9, adult; Z79.84 Long term (current) use of oral hypoglycemic drugs; Z79.890 Hormone replacement therapy; Z79.899 Other long term (current) drug therapy; Z88.0 Allergy status to penicillin; Z98.84 Bariatric surgery status
CPT/HCPCS: 43775; 47562; S2900; 64468; 80048; 80051; 81025; 82310; 82565; 83735; 84100; 84520; 85025; 88304; 88307; 94760

== ENCOUNTER 2024-08-06 11:47 | Outpatient (CLI) | payer BC ==
[~2024-08-06 11:47] MED LIST changes: -LIDOCAINE 1% (10MG/ML) FOR IV START INTRADERMA PRN; -ONDANSETRON 4 MG/2 ML VIAL IVP PRN; +SODIUM CHLORIDE 0.9% 250 ML in EMPTY BAG 1 BAG IV PRN; +SODIUM CHLORIDE 0.9% 500 ML 500 ML in EMPTY BAG 1 BAG IV PRN
[2024-08-06 12:15] VITALS: BP 121/78; PULSE 85; RESP 16
[2024-08-06] MEDS: SODIUM CHLORIDE 0.9% 1,000 ML IV SCH (12:17)
[2024-08-06 12:45] LABS: African American GFR (CKD) 56 (>60 ml/min/1.73 sqM); Anion Gap 13 mmol/L; Blood Urea Nitrogen 23 mg/dL (7-17); Calcium 9.5 mg/dL (8.4-10.2); Carbon Dioxide 24 mmol/L (22-30); Chloride 106 mmol/L (98-107); Glucose 110 mg/dL (74-99); Non-African American GFR(CKD) 48 (>60 ml/min/1.73 sqM); Potassium 3.9 mmol/L (3.5-5.1); Sodium 143 mmol/L (137-145)
== END 2024-08-07 12:15 | disposition home or self-care (01) ==
LOC: PROCWHC3 11:47
PROVIDERS: ATTEND Surgery Plastic and Reconstructive Surgery
DX: E86.0 Dehydration (principal); N17.9 Acute kidney failure, unspecified; E03.9 Hypothyroidism, unspecified
CPT/HCPCS: 80048; 84443; 96360; 96361

== ENCOUNTER → 2024-08-06 | Outpatient (CLI) | payer BC ==
--- NOTE | 2024-08-06 11:33 | FL ---
EXAMINATION TYPE: FL barium swallow DATE OF EXAM: 08/06/2024 CLINICAL HISTORY: Status post gastric sleeve Contrast: Omnipaque 350 50 mL The patient ingested contrast without difficulty or delay. Noted are postsurgical changes of gastric sleeve. There is no evidence for leak or obstruction. Contrast is noted within the duodenum. IMPRESSION: Post-surgical change of gastric sleeve without evidence for obstruction or leak at this point in time. [facility], , 08/06/2024 11:30 AM
== END | disposition home or self-care (01) ==
LOC: RADFLMAIN 10:28
PROVIDERS: ATTEND Surgery Plastic and Reconstructive Surgery
DX: R13.10 Dysphagia, unspecified (principal); Z98.890 Other specified postprocedural states
CPT/HCPCS: 74220; Q9967

== ENCOUNTER 2024-08-07 10:32 | Outpatient (CLI) | payer BC ==
[2024-08-07] MEDS: SODIUM CHLORIDE 0.9% 1,000 ML IV ONE (10:53)
[2024-08-07 10:59] VITALS: BP 143/94; PULSE 120; RESP 15; TEMP 98
[2024-08-07 11:26] LABS: African American GFR (CKD) 86 (>60 ml/min/1.73 sqM); Anion Gap 12 mmol/L; Blood Urea Nitrogen 13 mg/dL (7-17); Calcium 9.5 mg/dL (8.4-10.2); Carbon Dioxide 24 mmol/L (22-30); Chloride 107 mmol/L (98-107); Glucose 94 mg/dL (74-99); Non-African American GFR(CKD) 75 (>60 ml/min/1.73 sqM); Potassium 3.8 mmol/L (3.5-5.1); Sodium 143 mmol/L (137-145)
== END 2024-08-11 13:25 | disposition home or self-care (01) ==
LOC: PROCWHC3 10:32
PROVIDERS: ATTEND Surgery Plastic and Reconstructive Surgery
DX: E86.0 Dehydration (principal); N17.9 Acute kidney failure, unspecified
CPT/HCPCS: 80048; 96360

== ENCOUNTER → 2024-09-03 | Outpatient (CLI) | payer BC ==
[2024-09-03 13:25] VITALS: BP 148/91; PULSE 71; RESP 16; TEMP 98.2; BMI 52.2
--- NOTE | 2024-09-03 14:11 | P.BASOAP ---
Subjective Progress Note Date: 09/03/24 No heartburn. Need RTW letter 09/01/24. 26 pounds in 1 month. She has rash panniculitis. Nystatin powder. No more omeprazole. Gallbaldder is gone. Labs. NO constipation. She gets fluids 70 oz. Plan 90 oz. Objective - Vital Signs Vital signs: Vital Signs Temp 98.2 F 09/03/24 13:13 Pulse 71 09/03/24 13:13 Resp 16 09/03/24 13:13 BP 148/91 09/03/24 13:13 Pulse Ox FiO2 Intake & Output 09/02/24 09/03/24 09/03/24 18:59 06:59 18:59 Weight 133.81 kg Assessment/Plan Plan: Date: 09/03/24 Initial Weight: 157.85 kg Initial BMI: 61.6 Current Weight: 133.81 kg Current BMI: 52.2 Type of Surgery: Total Volume in Band: Previous Volume: Volume Removed: Volume Added: Band Size:
--- NOTE | 2024-09-03 14:13 | P.PN ---
Progress Note - Text Progress Note Date: 09/03/24 To whom it may concern: Marilu Christianson is under my surgical care. She may return to work without restrictions September 01, 2024. Regards, Milly Hou MD FACS
[2024-09-03 15:33] LABS: Partial Thromboplastin Time 24.9 sec (22.0-30.0); Prothrombin Time 11.2 sec (10.0-12.5)
[2024-09-03 18:13] LABS: HCT 43.1 % (37.2-46.3); HGB 13.6 g/dL (12.0-15.0); MCH 27.9 pg (27.0-32.0); MCHC 31.6 g/dL (32.0-37.0); MCV 88.5 FL (80.0-97.0); Mean Platelet Volume 12.3 FL (9.5-12.2); NRBC Per 100 WBC 0 X 10*3/uL (0.00-0.01); Platelet Count 328 X 10*3/uL (140-440); RBC 4.87 X 10*6/uL (4.10-5.20); RDW 13.6 % (11.5-14.5); WBC 8.99 X 10*3/uL (4.50-10.00)
[2024-09-03 21:37] LABS: % Iron Saturation 11.08 (12.00-45.00); ALT 77 U/L (8-44); AST 64 U/L (13-35); Albumin 4.1 g/dL (3.8-4.9); Albumin/Globulin Ratio 1.78 Ratio (1.60-3.17); Alkaline Phosphatase 106 U/L (41-126); BUN/Creat Ratio 11.88 Ratio (12.00-20.00); Blood Urea Nitrogen 9.5 mg/dL (9.0-27.0); Calcium 9.8 mg/dL (8.7-10.3); Carbon Dioxide 19.7 mmol/L (21.6-31.8); Chloride 107 mmol/L (96-109); Chol/HDL Ratio 6.07 Ratio; Globulin 2.3 g/dL (1.6-3.3); Glucose 105 mg/dL (70-110); Iron 45 UG/DL (50-170); LDL Cholesterol,Calculated 124.8 mg/dL (0.0-131.0); Magnesium 1.7 mg/dL (1.5-2.4); Phosphorus 3.5 mg/dL (2.4-5.1); Potassium 3.9 mmol/L (3.5-5.5); Sodium 144 mmol/L (135-145); Total Bilirubin 0.8 mg/dL (0.3-1.2); Total Iron Binding Capacity 406 UG/DL (228-460); Total Protein 6.4 g/dL (6.2-8.2)
[2024-09-03 22:17] LABS: Prealbumin 14.6 mg/dL (18.0-42.0)
[2024-09-04 12:21] LABS: Zinc, Serum 66 ug/dL (60-130)
[2024-09-05 06:57] LABS: Vitamin A 30 ug/dL (38-106)
== END ==
LOC: BARWHC3 12:47
PROVIDERS: ATTEND Surgery Plastic and Reconstructive Surgery
DX: E66.01 Morbid (severe) obesity due to excess calories (principal); E89.1 Postprocedural hypoinsulinemia; K91.2 Postsurgical malabsorption, not elsewhere classified; E44.0 Moderate protein-calorie malnutrition; E44.1 Mild protein-calorie malnutrition; E45 Retarded development following protein-calorie malnutrition; K74.1 Hepatic sclerosis; N19 Unspecified kidney failure; T56.894A Toxic effect of other metals, undetermined, initial encounter; D50.8 Other iron deficiency anemias; Z88.0 Allergy status to penicillin; Z68.43 Body mass index [BMI] 50.0-59.9, adult
CPT/HCPCS: 80053; 80061; 82306; 82525; 82607; 82728; 82746; 83036; 83540; 83550; 83735; 83970; 84100; 84134; 84255; 84425; 84443; 84590; 84630; 85027; 85610; 85730; 97803; 99211

== ENCOUNTER → 2024-10-29 | Outpatient (CLI) | payer BC ==
[2024-10-29 13:29] VITALS: BP 152/95; PULSE 62; RESP 16; TEMP 98.2; BMI 48.5
--- NOTE | 2024-10-29 14:52 | P.BASOAP ---
Subjective Progress Note Date: 10/29/24 Her TSH is improved. She is losing weight. She reports the loss of her mother who dies of uterine cancer. Protein not checking. She wants to get down to 160 pounds. Will need refill for thyroid. Needs Labs. Needs food journal. Monitor sodium. Will need readjustment of Synthroid pending how patient takes her thyroid medication Objective - Vital Signs Vital signs: Vital Signs Temp 98.2 F 10/29/24 13:27 Pulse 62 10/29/24 13:27 Resp 16 10/29/24 13:27 BP 152/95 10/29/24 13:27 Pulse Ox FiO2 Intake & Output 10/28/24 10/29/24 10/29/24 18:59 06:59 18:59 Weight 124.284 kg - Labs CBC & Chem 7: 10/29/24 15:04 10/29/24 15:04 Assessment/Plan Plan: Date: 10/29/24 Initial Weight: 157.85 kg Initial BMI: 61.6 Current Weight: 124.284 kg Current BMI: 48.5 Type of Surgery: Vertical Sleeve Gastrectomy Total Volume in Band: Previous Volume: Volume Removed: Volume Added: Band Size:
[2024-10-29 15:58] LABS: INR 1.0 (<1.2); Partial Thromboplastin Time 25.4 sec (22.0-30.0); Prothrombin Time 10.7 sec (10.0-12.5)
[2024-10-29 19:06] LABS: HCT 42.8 % (37.2-46.3); HGB 13.4 g/dL (12.0-15.0); MCH 28.1 pg (27.0-32.0); MCHC 31.3 g/dL (32.0-37.0); MCV 89.7 FL (80.0-97.0); NRBC Per 100 WBC 0 X 10*3/uL (0.00-0.01); Platelet Count 336 X 10*3/uL (140-440); RBC 4.77 X 10*6/uL (4.10-5.20); RDW 13.6 % (11.5-14.5); WBC 9.04 X 10*3/uL (4.50-10.00)
[2024-10-29 19:34] LABS: ALT 49 U/L (8-44); AST 45 U/L (13-35); Albumin 4.2 g/dL (3.8-4.9); Albumin/Globulin Ratio 1.75 Ratio (1.60-3.17); Alkaline Phosphatase 106 U/L (41-126); Anion Gap 13.30 mmol/L (4.00-12.00); BUN/Creat Ratio 13.86 Ratio (12.00-20.00); Blood Urea Nitrogen 9.7 mg/dL (9.0-27.0); Calcium 9.7 mg/dL (8.7-10.3); Carbon Dioxide 21.7 mmol/L (21.6-31.8); Chloride 106 mmol/L (96-109); Cholesterol 209.00 mg/dL (0.00-200.00); Ferritin 82.2 ng/mL (10.0-291.0); Globulin 2.4 g/dL (1.6-3.3); Glucose 98 mg/dL (70-110); HDL Cholesterol 32.30 mg/dL (40.00-60.00); Iron 55 UG/DL (50-170); LDL Cholesterol,Calculated 146.7 mg/dL (0.0-131.0); Magnesium 1.9 mg/dL (1.5-2.4); Potassium 4.1 mmol/L (3.5-5.5); Sodium 141 mmol/L (135-145); Total Iron Binding Capacity 417 UG/DL (228-460); Total Protein 6.6 g/dL (6.2-8.2); Triglycerides 150.00 mg/dL (0.00-149.00); VLDL Calculation 30.00 mg/dL (5.00-40.00); Vitamin B12 282.0 pg/mL (200.0-944.0)
[2024-10-29 22:24] LABS: Prealbumin 15.5 mg/dL (18.0-42.0)
[2024-10-30 12:53] LABS: Zinc, Serum 70 ug/dL (60-130)
[2024-10-31 06:00] LABS: Vit B1(Thiamine) 115 ug/L (38-122)
== END ==
LOC: BARWHC3 12:35
PROVIDERS: ATTEND Surgery Plastic and Reconstructive Surgery
DX: E66.01 Morbid (severe) obesity due to excess calories (principal); E44.0 Moderate protein-calorie malnutrition; D50.8 Other iron deficiency anemias; E45 Retarded development following protein-calorie malnutrition; E55.9 Vitamin D deficiency, unspecified; K50.90 Crohn's disease, unspecified, without complications; N19 Unspecified kidney failure; E89.1 Postprocedural hypoinsulinemia; K74.1 Hepatic sclerosis; K91.2 Postsurgical malabsorption, not elsewhere classified; Z68.42 Body mass index [BMI] 45.0-49.9, adult; Z88.0 Allergy status to penicillin
CPT/HCPCS: 80053; 80061; 82306; 82525; 82607; 82728; 82746; 83036; 83540; 83550; 83735; 83970; 84100; 84134; 84255; 84425; 84443; 84590; 84630; 85027; 85610; 85730; 99211